=== PATIENT | male | born 1980 | race Hispanic/Latino ===

== ENCOUNTER 2023-07-21 11:05 | Emergency (ER) | payer OTHER, SELFPAY ==
[2023-07-21] MEDS ORDERED: Amoxicillin/Potassium Clav 875 MG TAB ONE (11:24)
[2023-07-21] MEDS ORDERED: Boostrix 0.5 ML (Tdap) VIAL (>/=7 yrs of age) ONE (11:25)
[2023-07-21] MEDS ORDERED: Ibuprofen 800 MG TAB ONE (11:26)
[2023-07-21] MEDS ORDERED: Bacitracin 1 PK ONE (11:31)
== END 2023-07-21 12:15 | disposition home or self-care (01) ==
LOC: CSHERS 11:05
DX: S61.452A Open bite of left hand, initial encounter (principal); W54.0XXA Bitten by dog, initial encounter
CPT/HCPCS: 90471; 90715